=== PATIENT | female | born 1935 | race Caucasian/White ===

== ENCOUNTER 2016-04-28 13:48 | Emergency (ER) | payer OTHER, BC ==
[2016-04-28 13:56] VITALS: BP 152/91; PULSE 97; TEMP 97.8; BMI 37.8
--- NOTE | 2016-04-28 13:57 | PDOC ---
Rapid Medical Evaluation Time Seen by Provider: 04/28/16 13:50 Medical Evaluation: Allergies Allergy/AdvReac Type Severity Reaction Status Date / Time No Known Allergies Allergy Verified 11/16/15 08:29 04/28/16 13:51 I have performed a brief in-person evaluation of this patient The patient presents with a rash on lower belly and now has pain into the rectum Pertinent physical finding: VSS, rash lower abdomen appears well Burning in the rectal area The patient will proceed to the ED for further evaluation
--- NOTE | 2016-04-28 14:35 | PDOC ---
History of Present Illness - General Chief Complaint: Rash Stated Complaint: DISCOMFORT WHEN URINATING Time Seen by Provider: 04/28/16 13:50 History Source: Patient, Unavil. due to pt. cond. - History of Present Illness Initial Comments: CHIEF COMPLAINT: 80 y/o afebrile female with PMH HTN, hypothyroid, GERD c/o burning in her anus when she urinates. HISTORY OF PRESENT ILLNESS: She also admits to lower abdominal discomfort and frequent urination. She denies f/c, n/v/d, CP, SOB, back pain, hematuria. Vital signs on arrival are notable for pulse of 97. REVIEW OF SYSTEMS: GENERAL/CONSTITUTIONAL: No fever/chills. No weakness. No weight change. GASTROINTESTINAL: +lower abdominal discomfort. No nausea, vomiting, diarrhea GENITOURINARY: No dysuria, frequency, or change in urination. +burning in anal area with urination MUSCULOSKELETAL: No joint or muscle swelling or pain. No neck or back pain. SKIN: No rash or easy bruising. NEUROLOGIC: No headache, vertigo, loss of consciousness, or loss of sensation. PHYSICAL EXAM: GENERAL: The patient is awake, alert, and fully oriented, in no acute distress. HEAD: Normal with no signs of trauma. ABDOMEN: Soft, TTP of suprapubic region. No rebound, guarding or rigidity. RECTUM: No open sores or abrasions. Skin appears intact. No erythema EXTREMITIES: Normal range of motion, no edema. NEUROLOGICAL: Normal speech, normal gait. CN II-XII grossly intact. PSYCH: Normal mood, normal affect. SKIN: Warm, dry, normal turgor, no rashes or lesions noted. Past History - Past Medical History Allergies/Adverse Reactions: Allergies Allergy/AdvReac Type Severity Reaction Status Date / Time No Known Allergies Allergy Verified 04/28/16 13:52 Home Medications: Ambulatory Orders Benazepril HCl/Hctz [Lotensin Hct 20/25 (Nf)] 1 combo PO DAILY #0 tablet Losartan Potassium [Cozaar] 50 mg PO DAILY #0 tablet 06/10/11 Amlodipine Besylate [Norvasc -] 5 mg PO DAILY tablet 08/03/15 Hydrochlorothiazide [Hctz -] 25 mg PO DAILY tablet 08/03/15 Levothyroxine [Synthroid -] 100 mcg PO DAILY@0700 tablet 08/03/15 Lisinopril [Prinivil] 20 mg PO DAILY tablet 08/03/15 Pantoprazole Sodium [Protonix -] 20 mg PO DAILY tablet.ec 08/03/15 Hydrocortisone Valerate [Westcort 0.2% Cream -] 1 applic TP TID #1 tube Cephalexin Monohydrate [Keflex -] 500 mg PO BID #10 capsule 04/28/16 Anemia: Yes Asthma: No Cancer: No Cardiac Disorders: No CVA: No COPD: No CHF: No Dementia: No Diabetes: No GI Disorders: Yes (DIVERTICULITIS, gastritis) Disorders: No HTN: Yes Hypercholesterolemia: Yes Liver Disease: No Suicide Attempt (Hx): No Seizures: No Thyroid Disease: Yes - Surgical History Abdominal Surgery: Yes (HERNIA REPAIR, COLECTOMY) Appendectomy: No Cardiac Surgery: No Cholecystectomy: Yes Lung Surgery: No Neurologic Surgery: No Orthopedic Surgery: Yes (RIGHT SHOULDER A CHILD) - Immunization History Td Vaccination: Yes Immunization Up to Date: Yes - Psycho/Social/Smoking Cessation Hx Anxiety: No Suicidal Ideation: No Smoking Status: Yes Smoking History: Former smoker Have you smoked in the past 12 months: No Number of Cigarettes Smoked Daily: 0 If you are a former smoker, when did you quit?: 10 years ago Information on smoking cessation initiated: No Hx Alcohol Use: No Drug/Substance Use Hx: No Substance Use Type: None Hx Substance Use Treatment: No *Physical Exam - Vital Signs Last Vital Signs Temp Pulse Resp BP Pulse Ox 97.8 F 97 H 18 152/91 99 04/28/16 13:53 04/28/16 13:53 04/28/16 13:53 04/28/16 13:53 04/28/16 13:53 Medical Decision Making - Medical Decision Making A/P: 80 y/o female with burning in her anus with urination, increased urination and suprapubic tenderness. Plan is as follows: 1. UA/culture UA with 1+ leuks and 4 WBCs Given patient's age and complaints will treat with short course of keflex. Suggested she apply vaseline to anal area to help with burning. Suggested she f/u with her doctor within 1 week and return to the ER with any worsening or concerning symptoms. The patient verbalizes understanding of all instructions, has no further questions and is awaiting discharge. *DC/Admit/Observation/Transfer Diagnosis at time of Disposition: UTI (urinary tract infection) Qualifiers: Urinary tract infection type: acute cystitis Hematuria presence: without hematuria Qualified Code(s): N30.00 - Acute cystitis without hematuria - Discharge Dispostion Disposition: HOME Condition at time of disposition: Good - Prescriptions Prescriptions: Cephalexin Monohydrate [Keflex -] 500 mg PO BID #10 capsule - Referrals Referrals: Florin Ventura MD [Primary Care Provider] - Call tomorrow - Patient Instructions Printed Discharge Instructions: DI for Urinary Tract Infection (UTI) Additional Instructions: Discharge Instructions: -Take Keflex as prescribed -Apply vaseline around anal area to prevent burning -Drink plenty of water -Follow up with your doctor within 1 week -Return to the ER with any worsening or concerning symptoms
[2016-04-28 15:18] LABS: URINE APPEARANCE SLCLOUDY; URINE BILIRUBIN NEGATIVE (NEGATIVE); URINE BLOOD NEGATIVE (NEGATIVE); URINE COLOR LTYELLOW; URINE GLUCOSE (UA) NEGATIVE (NEGATIVE); URINE KETONE NEGATIVE (NEGATIVE); URINE NITRITE NEGATIVE (NEGATIVE); URINE PROTEIN NEGATIVE (NEGATIVE); URINE UROBILINOGEN NEGATIVE E.U./dl (0.2-1.0)
[2016-04-28 15:23] LABS: URINE LEUK ESTERASE 1+ (NEGATIVE)
[2016-04-28 15:58] LABS: URINE HYALINE CAST 1 /lpf; URINE MUCUS RARE; URINE RBC 1 /hpf (0-3); URINE WBC 4 /hpf (3-5)
== END 2016-04-28 16:25 | disposition home or self-care (01) ==
LOC: JERFT 13:48
DX: N30.00 Acute cystitis without hematuria (principal); I10 Essential (primary) hypertension; E03.9 Hypothyroidism, unspecified; K21.9 Gastro-esophageal reflux disease without esophagitis; D64.9 Anemia, unspecified
CPT/HCPCS: 81003; 81015; 99281-25

== ENCOUNTER 2021-08-10 15:24 | Inpatient (IN) | payer OTHER, BC ==
[2021-08-10] MEDS ORDERED: ACETAMINOPHEN 1000 MG/100 ML BAG IVPB ONE (17:14)
[2021-08-10] MEDS ORDERED: ACETAMINOPHEN INJECTION 100 ML IVPB ONE (17:27)
[2021-08-10 17:34] LABS: EOS % 2.5 % (0-4.5); HEMATOCRIT 32.5 % (32.4-45.2); HEMOGLOBIN 10.4 GM/dL (10.7-15.3); LYMPH % 11.1 % (8-40); MCH 28.4 pg (25.7-33.7); MCHC 32.1 g/dl (32.0-36.0); MEAN CELL VOLUME 88.5 fl (80-96); MEAN PLT VOLUME 8.9 fl (7.5-11.1); MONO % 6.5 % (3.8-10.2); NEUT % 78.9 % (42.8-82.8); PLATELET COUNT 462 10^3/uL (134-434); RBC 3.68 M/mm3 (3.60-5.2); RDW 31.3 % (11.6-15.6); RETICULOCYTES 1.53 % (0.5-1.5)
[2021-08-10 17:44] LABS: INR 1.09 (0.83-1.09); PROTHROMBIN TIME (PATIENT) 12.6 SEC (9.7-13.0)
[2021-08-10 17:46] LABS: ACTIVATED PTT 28.1 SECONDS (25.2-36.5)
[2021-08-10 17:54] LABS: BLOOD UREA NITROGEN 26.4 mg/dL (7-18); CALCIUM 9.3 mg/dL (8.5-10.1)
[2021-08-10 17:55] LABS: ALBUMIN 3.4 g/dl (3.4-5.0)
[2021-08-10 17:58] LABS: CREATININE 0.8 mg/dL (0.55-1.3)
[2021-08-10 17:59] LABS: BILIRUBIN,TOTAL 0.2 mg/dL (0.2-1); TOT PROT 6.4 g/dl (6.4-8.2)
[2021-08-10 18:21] LABS: EPI CELLS 27 /uL (0-25.1); HYALINE CASTS 1 /uL (0-3.1); PH,URINE 5.5 (5.0-8.0); URINE APPEARANCE CLEAR; URINE BACTERIA 2239 /uL (0-1359); URINE BILIRUBIN NEGATIVE (NEGATIVE); URINE COLOR YELLOW; URINE GLUCOSE (UA) NEGATIVE (NEGATIVE); URINE KETONE NEGATIVE (NEGATIVE); URINE LEUK ESTERASE 1+ (NEGATIVE); URINE NITRITE NEGATIVE (NEGATIVE); URINE PROTEIN NEGATIVE (NEGATIVE); URINE RBC 6 /uL (0-23.9); URINE UROBILINOGEN 0.2 mg/dL (0.2-1.0); URINE WBC 36 /uL (0-25.8)
[2021-08-10] MEDS ORDERED: PANTOPRAZOLE SODIUM 40 MG VIAL IVPUSH ONE (20:51)
[2021-08-10] MEDS ORDERED: PANTOPRAZOLE SODIUM 40 MG VIAL ONE (20:57)
[2021-08-10] MEDS ORDERED: MELATONIN 5 MG TABLETS PO PRN (22:56)
[2021-08-10] MEDS ORDERED: ACETAMINOPHEN 1000 MG/100 ML BAG IVPB PRN (22:56)
[2021-08-10] MEDS ORDERED: LACTATED RINGERS SOLUTION 1,000 ML/1,000 ML INFUS.BAG IV SCH (23:00)
[2021-08-11 06:53] LABS: BASO % 1.2 % (0-2.0); EOS % 6.1 % (0-4.5); HEMATOCRIT 29.5 % (32.4-45.2); HEMOGLOBIN 9.8 GM/dL (10.7-15.3); MCH 29.2 pg (25.7-33.7); MCHC 33.3 g/dl (32.0-36.0); MEAN CELL VOLUME 87.8 fl (80-96); MEAN PLT VOLUME 8.8 fl (7.5-11.1); MONO % 9.4 % (3.8-10.2); NEUT % 63.3 % (42.8-82.8); PLATELET COUNT 384 10^3/uL (134-434); RBC 3.36 M/mm3 (3.60-5.2); RDW 31.6 % (11.6-15.6); WHITE BLOOD COUNT 6.5 K/mm3 (4.0-10.0)
[2021-08-11 07:19] LABS: ALBUMIN 3.1 g/dl (3.4-5.0); CALCIUM 9.2 mg/dL (8.5-10.1)
[2021-08-11 07:20] LABS: BLOOD UREA NITROGEN 22.4 mg/dL (7-18); MAGNESIUM 2.4 mg/dL (1.8-2.4)
[2021-08-11 07:22] LABS: CREATININE 0.7 mg/dL (0.55-1.3); PHOSPHOROUS 3.4 mg/dL (2.5-4.9)
[2021-08-11 07:24] LABS: BILIRUBIN,TOTAL 0.4 mg/dL (0.2-1); TOT PROT 5.8 g/dl (6.4-8.2)
[2021-08-11] MEDS: LEVOTHYROXINE NA 112 MCG TABLET (FP) PO SCH (08:37)
[2021-08-11] MEDS ORDERED: PANTOPRAZOLE 40 MG TABLET PO ONE (09:27)
[2021-08-11] MEDS ORDERED: LOSARTAN POTASSIUM 50 MG TABLET ONE (09:27)
[2021-08-11] MEDS: LOSARTAN POTASSIUM 50 MG TABLET PO SCH (09:39)
[2021-08-11] MEDS ORDERED: PANTOPRAZOLE 40 MG TABLET PO SCH (10:00)
[2021-08-11 16:48] VITALS: BMI 32.7
[2021-08-11] MEDS ORDERED: PNEUMOC 20-VAL CONJ-DIP CRM/PF 0.5 ML SYRINGE IM ONE (17:15)
[2021-08-11] MEDS: PANTOPRAZOLE SODIUM 80 MG in SODIUM CHLORIDE 100 ML IVPB SCH (18:58)
[2021-08-11] MEDS: LACTATED RINGERS SOLUTION 1,000 ML/1,000 ML INFUS.BAG IV SCH (18:58)
[2021-08-11 20:19] LABS: BASO % 0.9 % (0-2.0); HEMOGLOBIN 9.3 GM/dL (10.7-15.3); LYMPH % 13.9 % (8-40); MCH 28.5 pg (25.7-33.7); MCHC 31.9 g/dl (32.0-36.0); MEAN CELL VOLUME 89.3 fl (80-96); MEAN PLT VOLUME 9.1 fl (7.5-11.1); MONO % 8.7 % (3.8-10.2); NEUT % 71.5 % (42.8-82.8); PLATELET COUNT 386 10^3/uL (134-434); RBC 3.25 M/mm3 (3.60-5.2); RDW 31.1 % (11.6-15.6)
[2021-08-12] MEDS: PANTOPRAZOLE SODIUM 80 MG in SODIUM CHLORIDE 100 ML IVPB SCH ×3 (05:56→15:43)
[2021-08-12] MEDS: LEVOTHYROXINE NA 112 MCG TABLET (FP) PO SCH (06:02)
[2021-08-12 08:34] LABS: BASO % 0.9 % (0-2.0); HEMATOCRIT 28.4 % (32.4-45.2); HEMOGLOBIN 9.4 GM/dL (10.7-15.3); LYMPH % 16.3 % (8-40); MCH 29.5 pg (25.7-33.7); MCHC 33.1 g/dl (32.0-36.0); MEAN PLT VOLUME 8.9 fl (7.5-11.1); MONO % 9.1 % (3.8-10.2); NEUT % 67.7 % (42.8-82.8); PLATELET COUNT 374 10^3/uL (134-434); RDW 31.2 % (11.6-15.6); WHITE BLOOD COUNT 6.5 K/mm3 (4.0-10.0)
[2021-08-12 08:45] LABS: INR 1.14 (0.83-1.09); PROTHROMBIN TIME (PATIENT) 13.1 SEC (9.7-13.0)
[2021-08-12 09:04] LABS: BLOOD UREA NITROGEN 14.5 mg/dL (7-18)
[2021-08-12 09:07] LABS: CREATININE 0.6 mg/dL (0.55-1.3)
[2021-08-12] MEDS ORDERED: PANTOPRAZOLE 40 MG TABLET PO SCH (10:00)
[2021-08-12] MEDS: LOSARTAN POTASSIUM 50 MG TABLET PO SCH (10:15)
[2021-08-12] MEDS: LACTATED RINGERS SOLUTION 1,000 ML/1,000 ML INFUS.BAG IV SCH (20:48)
[2021-08-13] MEDS: PANTOPRAZOLE SODIUM 80 MG in SODIUM CHLORIDE 100 ML IVPB SCH (00:26)
[2021-08-13] MEDS: LEVOTHYROXINE NA 112 MCG TABLET (FP) PO SCH (06:31)
[2021-08-13] MEDS ORDERED: ACETAMINOPHEN 325 MG TABLET (FP) PO PRN (08:15)
[2021-08-13] MEDS ORDERED: LACTATED RINGERS SOLUTION 1,000 ML/1,000 ML INFUS.BAG IV SCH (08:15)
[2021-08-13] MEDS: LOSARTAN POTASSIUM 50 MG TABLET PO SCH (11:01)
[2021-08-13 16:27] LABS: HEMATOCRIT 26.9 % (32.4-45.2); HEMOGLOBIN 8.7 GM/dL (10.7-15.3); MCH 29.4 pg (25.7-33.7); MCHC 32.1 g/dl (32.0-36.0); MEAN CELL VOLUME 91.6 fl (80-96); MEAN PLT VOLUME 9.4 fl (7.5-11.1); PLATELET COUNT 361 10^3/uL (134-434); RBC 2.94 M/mm3 (3.60-5.2); RDW 31.5 % (11.6-15.6); WHITE BLOOD COUNT 11.6 K/mm3 (4.0-10.0)
[2021-08-13 16:47] LABS: BLOOD UREA NITROGEN 16.8 mg/dL (7-18)
[2021-08-13 16:51] LABS: CREATININE 0.7 mg/dL (0.55-1.3)
[2021-08-13 21:46] LABS: BASO % 0.6 % (0-2.0); EOS % 5.3 % (0-4.5); HEMATOCRIT 24.5 % (32.4-45.2); HEMOGLOBIN 8.2 GM/dL (10.7-15.3); LYMPH % 14.8 % (8-40); MCH 30.2 pg (25.7-33.7); MCHC 33.3 g/dl (32.0-36.0); MEAN CELL VOLUME 90.6 fl (80-96); MEAN PLT VOLUME 8.8 fl (7.5-11.1); MONO % 10.2 % (3.8-10.2); NEUT % 69.1 % (42.8-82.8); PLATELET COUNT 328 10^3/uL (134-434); RBC 2.71 M/mm3 (3.60-5.2); RDW 31.3 % (11.6-15.6); WHITE BLOOD COUNT 8.8 K/mm3 (4.0-10.0)
[2021-08-13 21:53] LABS: INR 1.22 (0.83-1.09); PROTHROMBIN TIME (PATIENT) 14.1 SEC (9.7-13.0)
[2021-08-14] MEDS: LEVOTHYROXINE NA 112 MCG TABLET (FP) PO SCH (06:25)
[2021-08-14 09:27] LABS: HEMATOCRIT 25.1 % (32.4-45.2); HEMOGLOBIN 8.2 GM/dL (10.7-15.3); MCH 29.7 pg (25.7-33.7); MCHC 32.9 g/dl (32.0-36.0); MEAN CELL VOLUME 90.3 fl (80-96); MEAN PLT VOLUME 8.7 fl (7.5-11.1); PLATELET COUNT 346 10^3/uL (134-434); RBC 2.78 M/mm3 (3.60-5.2)
[2021-08-14 09:56] LABS: CALCIUM 8.7 mg/dL (8.5-10.1)
[2021-08-14 09:57] LABS: BLOOD UREA NITROGEN 12.3 mg/dL (7-18)
[2021-08-14 10:00] LABS: CREATININE 0.7 mg/dL (0.55-1.3)
[2021-08-14] MEDS: LOSARTAN POTASSIUM 50 MG TABLET PO SCH (10:38)
[2021-08-15] MEDS: LEVOTHYROXINE NA 112 MCG TABLET (FP) PO SCH (06:11)
[2021-08-15] MEDS ORDERED: PEG 3350/NA SULF BICARB CL/KCL 4000 ML SOLN.RECON PO ONE (08:00)
[2021-08-15 08:43] LABS: HEMATOCRIT 24.9 % (32.4-45.2); HEMOGLOBIN 8.3 GM/dL (10.7-15.3); MCH 30.5 pg (25.7-33.7); MCHC 33.4 g/dl (32.0-36.0); MEAN CELL VOLUME 91.1 fl (80-96); MEAN PLT VOLUME 8.8 fl (7.5-11.1); PLATELET COUNT 364 10^3/uL (134-434); RBC 2.73 M/mm3 (3.60-5.2); RDW 31.6 % (11.6-15.6)
[2021-08-15 08:59] LABS: BLOOD UREA NITROGEN 10.5 mg/dL (7-18); CALCIUM 8.8 mg/dL (8.5-10.1)
[2021-08-15 09:02] LABS: CREATININE 0.7 mg/dL (0.55-1.3)
[2021-08-15] MEDS: LOSARTAN POTASSIUM 50 MG TABLET PO SCH (09:42)
[2021-08-15] MEDS ORDERED: BISACODYL 5 MG TABLET.DR (FP) PO ONE (11:00)
[2021-08-15] MEDS ORDERED: POLYETHYLENE GLYCOL 3350 255 GM BTL PO ONE (11:15)
[2021-08-16] MEDS ORDERED: SODIUM PHOSPHATE/NA BIPHOS 133 ML ENEMA RC ONE (04:00)
[2021-08-16] MEDS: LEVOTHYROXINE NA 112 MCG TABLET (FP) PO SCH (06:03)
[2021-08-16 07:10] LABS: HEMATOCRIT 21.6 % (32.4-45.2); HEMOGLOBIN 7.2 GM/dL (10.7-15.3); MCH 30.2 pg (25.7-33.7); MCHC 33.1 g/dl (32.0-36.0); MEAN CELL VOLUME 91.3 fl (80-96); MEAN PLT VOLUME 8.8 fl (7.5-11.1); PLATELET COUNT 336 10^3/uL (134-434); RBC 2.37 M/mm3 (3.60-5.2); RDW 30.8 % (11.6-15.6); WHITE BLOOD COUNT 8.2 K/mm3 (4.0-10.0)
[2021-08-16 07:35] LABS: CALCIUM 8.9 mg/dL (8.5-10.1)
[2021-08-16 07:36] LABS: BLOOD UREA NITROGEN 8.4 mg/dL (7-18)
[2021-08-16 07:39] LABS: CREATININE 0.7 mg/dL (0.55-1.3)
[2021-08-16] MEDS: PANTOPRAZOLE 40 MG TABLET PO SCH (09:10)
[2021-08-16] MEDS: LOSARTAN POTASSIUM 50 MG TABLET PO SCH (09:10)
[2021-08-17] MEDS: LEVOTHYROXINE NA 112 MCG TABLET (FP) PO SCH (06:24)
[2021-08-17 09:20] LABS: HEMATOCRIT 28.2 % (32.4-45.2); HEMOGLOBIN 9.6 GM/dL (10.7-15.3); MCH 30.7 pg (25.7-33.7); MCHC 33.9 g/dl (32.0-36.0); MEAN CELL VOLUME 90.5 fl (80-96); MEAN PLT VOLUME 9.1 fl (7.5-11.1); PLATELET COUNT 377 10^3/uL (134-434); RBC 3.11 M/mm3 (3.60-5.2); RDW 28.4 % (11.6-15.6); WHITE BLOOD COUNT 9.1 K/mm3 (4.0-10.0)
[2021-08-17 10:13] LABS: ALBUMIN 2.9 g/dl (3.4-5.0); BLOOD UREA NITROGEN 9.5 mg/dL (7-18); CALCIUM 8.7 mg/dL (8.5-10.1)
[2021-08-17 10:16] LABS: CREATININE 0.6 mg/dL (0.55-1.3)
[2021-08-17 10:18] LABS: BILIRUBIN,TOTAL 0.5 mg/dL (0.2-1); TOT PROT 5.5 g/dl (6.4-8.2)
[2021-08-17] MEDS: PANTOPRAZOLE 40 MG TABLET PO SCH (10:29)
[2021-08-17] MEDS: LOSARTAN POTASSIUM 50 MG TABLET PO SCH (10:29)
[2021-08-17 13:55] VITALS: BP 147/64; PULSE 64; TEMP 98.2
== END 2021-08-17 16:30 | disposition home or self-care (01) | DRG 378 ==
LOC: JER 15:24 → JERBED 20:39 → J7W 08-11 15:57
PROVIDERS: ADMIT Hospitalist; ATTEND Internal Medicine
PROC: 0DB58ZX Excision of Esophagus, Via Natural or Artificial Opening Endoscopic, Diagnostic (ICD-10-PCS; principal; 2021-08-13 09:00)
PROC: 0DBH8ZX Excision of Cecum, Via Natural or Artificial Opening Endoscopic, Diagnostic (ICD-10-PCS; 2021-08-16)
PROC: 30233N1 Transfusion of Nonautologous Red Blood Cells into Peripheral Vein, Percutaneous Approach (ICD-10-PCS; 2021-08-16)
DX: K92.2 Gastrointestinal hemorrhage, unspecified (principal); D62 Acute posthemorrhagic anemia; I10 Essential (primary) hypertension; K21.9 Gastro-esophageal reflux disease without esophagitis; E03.9 Hypothyroidism, unspecified; K64.8 Other hemorrhoids; R50.9 Fever, unspecified; G47.09 Other insomnia; K57.90 Diverticulosis of intestine, part unspecified, without perforation or abscess without bleeding; K76.89 Other specified diseases of liver; D50.9 Iron deficiency anemia, unspecified; R01.1 Cardiac murmur, unspecified; D75.838 Other thrombocytosis; K44.9 Diaphragmatic hernia without obstruction or gangrene; E66.9 Obesity, unspecified; Z68.32 Body mass index [BMI] 32.0-32.9, adult; I34.0 Nonrheumatic mitral (valve) insufficiency; D13.0 Benign neoplasm of esophagus
CPT/HCPCS: 0241U-QW; 36415; 36430; 71045-TC-FY; 74174-TC; 80048; 80053; 81003; 82272; 82728; 83540; 83550; 83605; 83735; 84100; 84484; 85025; 85027; 85045; 85610; 85730; 86850; 86900; 86901; 86922; 87081; 87086; 87186; 88305-TC; 90677; 93005; 93010; 93306-TC; 94760; 99285-25; P9058; Q9967

== ENCOUNTER 2023-03-10 06:18 | Inpatient (IN) | payer OTHER, BC ==
[2023-03-10] MEDS ORDERED: SODIUM CHLORIDE 0.9% 500 ML INFUS.BAG IV ONE (06:34)
[2023-03-10] MEDS ORDERED: ONDANSETRON 4 MG/2 ML VIAL IVPUSH ONE (06:34)
[2023-03-10] MEDS ORDERED: FAMOTIDINE 20 MG/50 ML IVPB 20 MG/50 ML MG IVPB ONE ×2 (06:34→07:19)
[2023-03-10] MEDS ORDERED: ACETAMINOPHEN 1000 MG/100 ML BAG IVPB ONE (06:42)
[2023-03-10] MEDS ORDERED: ACETAMINOPHEN INJECTION 100 ML IVPB ONE (07:19)
[2023-03-10] MEDS ORDERED: ONDANSETRON 4 MG/2 ML VIAL ONE (07:19)
[2023-03-10 07:20] LABS: BASO % 0.5 % (0-2.0); EOS % 0.2 % (0-4.5); HEMATOCRIT 33.1 % (32.4-45.2); HEMOGLOBIN 10.2 GM/dL (10.7-15.3); LYMPH % 5.9 % (8-40); MCH 25.3 pg (25.7-33.7); MCHC 30.8 g/dl (32.0-36.0); MEAN CELL VOLUME 82.2 fl (80-96); MEAN PLT VOLUME 9.2 fl (7.5-11.1); MONO % 3.1 % (3.8-10.2); NEUT % 90.3 % (42.8-82.8); PLATELET COUNT 487 10^3/uL (134-434); RBC 4.02 M/mm3 (3.60-5.2); WHITE BLOOD COUNT 12.5 K/mm3 (4.0-10.0)
[2023-03-10 07:45] LABS: POTASSIUM 4.3 mmol/L (3.5-5.1)
[2023-03-10 07:47] LABS: CALCIUM 9.5 mg/dL (8.5-10.1)
[2023-03-10 07:48] LABS: ALBUMIN 3.5 g/dl (3.4-5.0); MAGNESIUM 2.1 mg/dL (1.8-2.4)
[2023-03-10 07:50] LABS: CREATININE 0.9 mg/dL (0.55-1.3)
[2023-03-10 07:52] LABS: BILIRUBIN,TOTAL 0.3 mg/dL (0.2-1); TOT PROT 7.2 g/dl (6.4-8.2)
[2023-03-10] MEDS ORDERED: BISACODYL 10 MG SUPP.RECT PR PRN (14:13)
[2023-03-10] MEDS ORDERED: PANTOPRAZOLE SODIUM 40 MG VIAL IVPUSH SCH (14:15)
[2023-03-10] MEDS ORDERED: PIPERACILLIN/TAZOB 3.375 GM 3.375 GM/50 ML BAG IVPB ONE (15:09)
[2023-03-10] MEDS ORDERED: SODIUM CHLORIDE 1,000 ML IV SCH (15:15)
[2023-03-10] MEDS: PIPERACILLIN/TAZOB 3.375 GM 3.375 GM in DEXTROSE 5%-WATER - 50 ML IVPB SCH ×2 (16:56→21:32)
[2023-03-10 18:39] LABS: EPI CELLS 32 /uL (0-25.1); HYALINE CASTS 2 /uL (0-3.1); PH,URINE 5.5 (5.0-8.0); URINE APPEARANCE CLEAR; URINE BACTERIA 1527 /uL (0-1359); URINE BILIRUBIN NEGATIVE (NEGATIVE); URINE COLOR YELLOW; URINE GLUCOSE (UA) NEGATIVE (NEGATIVE); URINE KETONE NEGATIVE (NEGATIVE); URINE LEUK ESTERASE NEGATIVE (NEGATIVE); URINE NITRITE POSITIVE (NEGATIVE); URINE PROTEIN 1+ (NEGATIVE); URINE RBC 11 /uL (0-23.9); URINE WBC 13 /uL (0-25.8)
[2023-03-10 21:10] VITALS: BMI 32.8
[2023-03-10] MEDS: POLYETHYLENE GLYCOL (HEALTHYLAX) 3350 17 GM PACKET PO SCH (21:32)
[2023-03-10] MEDS: PANTOPRAZOLE SODIUM 40 MG VIAL IVPUSH SCH (21:33)
[2023-03-11] MEDS: PIPERACILLIN/TAZOB 3.375 GM 3.375 GM in DEXTROSE 5%-WATER - 50 ML IVPB SCH (01:21)
[2023-03-11] MEDS: HYDROXYUREA 500 MG CAPSULE PO SCH (09:06)
[2023-03-11] MEDS: LOSARTAN POTASSIUM 50 MG TABLET PO SCH (09:06)
[2023-03-11] MEDS: POLYETHYLENE GLYCOL (HEALTHYLAX) 3350 17 GM PACKET PO SCH ×2 (09:07→21:39)
[2023-03-11] MEDS: PANTOPRAZOLE SODIUM 40 MG VIAL IVPUSH SCH ×2 (09:15→21:35)
[2023-03-11] MEDS: LEVOTHYROXINE SODIUM 100 MCG 5 ML VIAL IVPUSH SCH (09:15)
[2023-03-11 09:54] LABS: PH,URINE 5.5 (5.0-8.0); URINE APPEARANCE CLEAR; URINE BILIRUBIN NEGATIVE (NEGATIVE); URINE COLOR YELLOW; URINE GLUCOSE (UA) NEGATIVE (NEGATIVE); URINE KETONE NEGATIVE (NEGATIVE); URINE LEUK ESTERASE NEGATIVE (NEGATIVE); URINE NITRITE NEGATIVE (NEGATIVE); URINE PROTEIN TRACE (NEGATIVE)
[2023-03-11 10:01] LABS: INR 1.12 (0.83-1.09)
[2023-03-11 10:10] LABS: BASO % 0.8 % (0-2.0); EOS % 4.5 % (0-4.5); HEMATOCRIT 28.1 % (32.4-45.2); HEMOGLOBIN 8.6 GM/dL (10.7-15.3); LYMPH % 14.9 % (8-40); MCH 25.1 pg (25.7-33.7); MCHC 30.4 g/dl (32.0-36.0); MEAN CELL VOLUME 82.6 fl (80-96); MEAN PLT VOLUME 9.3 fl (7.5-11.1); NEUT % 69.8 % (42.8-82.8); PLATELET COUNT 369 10^3/uL (134-434); RBC 3.41 M/mm3 (3.60-5.2); RDW 19.5 % (11.6-15.6); RETICULOCYTES 1.11 % (0.5-1.5); WHITE BLOOD COUNT 6.8 K/mm3 (4.0-10.0)
[2023-03-11 10:18] LABS: POTASSIUM 3.9 mmol/L (3.5-5.1)
[2023-03-11 10:20] LABS: BLOOD UREA NITROGEN 14.6 mg/dL (7-18); CALCIUM 8.4 mg/dL (8.5-10.1); MAGNESIUM 2.2 mg/dL (1.8-2.4)
[2023-03-11 10:23] LABS: CREATININE 0.8 mg/dL (0.55-1.3); PHOSPHOROUS 2.9 mg/dL (2.5-4.9)
[2023-03-11 10:25] LABS: BILIRUBIN,TOTAL 0.4 mg/dL (0.2-1); TOT PROT 5.6 g/dl (6.4-8.2)
[2023-03-11 10:28] LABS: ALBUMIN 2.7 g/dl (3.4-5.0)
[2023-03-12 07:48] LABS: BASO % 1.1 % (0-2.0); EOS % 6.2 % (0-4.5); HEMATOCRIT 27.7 % (32.4-45.2); HEMOGLOBIN 8.8 GM/dL (10.7-15.3); LYMPH % 16.6 % (8-40); MCH 26.2 pg (25.7-33.7); MCHC 31.6 g/dl (32.0-36.0); MEAN PLT VOLUME 9.6 fl (7.5-11.1); MONO % 10.1 % (3.8-10.2); PLATELET COUNT 321 10^3/uL (134-434); RBC 3.34 M/mm3 (3.60-5.2); RDW 19.3 % (11.6-15.6); WHITE BLOOD COUNT 6.6 K/mm3 (4.0-10.0)
[2023-03-12 08:07] LABS: POTASSIUM 3.8 mmol/L (3.5-5.1)
[2023-03-12 08:08] LABS: CALCIUM 8.7 mg/dL (8.5-10.1)
[2023-03-12 08:13] LABS: CREATININE 0.6 mg/dL (0.55-1.3)
[2023-03-12] MEDS: LEVOTHYROXINE SODIUM 100 MCG 5 ML VIAL IVPUSH SCH (10:10)
[2023-03-12] MEDS: HYDROXYUREA 500 MG CAPSULE PO SCH (10:10)
[2023-03-12] MEDS: LOSARTAN POTASSIUM 50 MG TABLET PO SCH (10:10)
[2023-03-12] MEDS: PANTOPRAZOLE SODIUM 40 MG VIAL IVPUSH SCH ×2 (10:11→21:52)
[2023-03-12] MEDS: POLYETHYLENE GLYCOL (HEALTHYLAX) 3350 17 GM PACKET PO SCH ×2 (10:13→21:52)
[2023-03-12] MEDS: PIPERACILLIN/TAZOB 3.375 GM 3.375 GM in DEXTROSE 5%-WATER - 50 ML IVPB SCH ×3 (13:21→16:38)
[2023-03-12] MEDS ORDERED: IRON SUCROSE INJECTION 200 MG in SODIUM CHLORIDE 90 ML IVPB ONE (14:00)
[2023-03-13 09:34] LABS: HEMATOCRIT 32.1 % (32.4-45.2); HEMOGLOBIN 9.8 GM/dL (10.7-15.3); MCH 25.3 pg (25.7-33.7); MCHC 30.7 g/dl (32.0-36.0); MEAN CELL VOLUME 82.5 fl (80-96); MEAN PLT VOLUME 9.4 fl (7.5-11.1); PLATELET COUNT 332 10^3/uL (134-434); RBC 3.89 M/mm3 (3.60-5.2); RDW 19.3 % (11.6-15.6)
[2023-03-13 09:57] LABS: POTASSIUM 3.7 mmol/L (3.5-5.1)
[2023-03-13] MEDS: LEVOTHYROXINE SODIUM 100 MCG 5 ML VIAL IVPUSH SCH (10:13)
[2023-03-13] MEDS: POLYETHYLENE GLYCOL (HEALTHYLAX) 3350 17 GM PACKET PO SCH ×2 (10:13→21:27)
[2023-03-13 10:14] LABS: BLOOD UREA NITROGEN 9.4 mg/dL (7-18); CALCIUM 9.1 mg/dL (8.5-10.1)
[2023-03-13] MEDS: LOSARTAN POTASSIUM 50 MG TABLET PO SCH (10:14)
[2023-03-13] MEDS: HYDROXYUREA 500 MG CAPSULE PO SCH (10:14)
[2023-03-13] MEDS: PANTOPRAZOLE SODIUM 40 MG VIAL IVPUSH SCH ×2 (10:15→21:27)
[2023-03-13 10:18] LABS: CREATININE 0.7 mg/dL (0.55-1.3)
[2023-03-13] MEDS ORDERED: IRON SUCROSE INJECTION 200 MG in SODIUM CHLORIDE 90 ML IVPB ONE (11:00)
[2023-03-14 09:30] LABS: BASO % 1.1 % (0-2.0); EOS % 7.3 % (0-4.5); HEMATOCRIT 30.1 % (32.4-45.2); HEMOGLOBIN 9.4 GM/dL (10.7-15.3); MCH 26.2 pg (25.7-33.7); MCHC 31.3 g/dl (32.0-36.0); MEAN CELL VOLUME 83.6 fl (80-96); MEAN PLT VOLUME 9.1 fl (7.5-11.1); NEUT % 66.6 % (42.8-82.8); PLATELET COUNT 261 10^3/uL (134-434); RDW 19.9 % (11.6-15.6); RETICULOCYTES 1.87 % (0.5-1.5); WHITE BLOOD COUNT 5.9 K/mm3 (4.0-10.0)
[2023-03-14] MEDS: PANTOPRAZOLE SODIUM 40 MG VIAL IVPUSH SCH (09:39)
[2023-03-14] MEDS: LEVOTHYROXINE SODIUM 100 MCG 5 ML VIAL IVPUSH SCH (09:39)
[2023-03-14] MEDS: HYDROXYUREA 500 MG CAPSULE PO SCH ×2 (09:39→09:54)
[2023-03-14] MEDS: POLYETHYLENE GLYCOL (HEALTHYLAX) 3350 17 GM PACKET PO SCH ×2 (09:39→21:43)
[2023-03-14] MEDS: LOSARTAN POTASSIUM 50 MG TABLET PO SCH (09:39)
[2023-03-14 09:51] LABS: POTASSIUM 3.3 mmol/L (3.5-5.1)
[2023-03-14 10:00] LABS: BLOOD UREA NITROGEN 9.4 mg/dL (7-18); CREATININE 0.6 mg/dL (0.55-1.3)
[2023-03-14] MEDS ORDERED: KCL 20 MEQ PREMIX BAG 20 MEQ/100 ML INFUS.BAG IVPB SCH (10:30)
[2023-03-14] MEDS: KCL 10 MEQ IVPB 10 MEQ/100 ML INFUS.BAG IVPB SCH ×2 (11:00→11:38)
[2023-03-14] MEDS: POTASSIUM CHLORIDE ORAL LIQUID 20 MEQ/15 ML PO SCH ×2 (11:48→21:43)
[2023-03-14] MEDS ORDERED: ONDANSETRON 4 MG/2 ML VIAL IVPUSH ONE (12:22)
[2023-03-14 14:44] VITALS: RESP 18
[2023-03-14] MEDS ORDERED: LOSARTAN POTASSIUM 50 MG TABLET PO SCH (16:54)
[2023-03-14] MEDS ORDERED: IRON SUCROSE INJECTION 100 MG in SODIUM CHLORIDE 95 ML IVPB ONE (18:00)
[2023-03-14] MEDS: HEPARIN NA (PORCINE) 5,000 UNITS/ML 1ML VIAL SQ SCH (21:43)
[2023-03-15] MEDS: HEPARIN NA (PORCINE) 5,000 UNITS/ML 1ML VIAL SQ SCH (05:15)
[2023-03-15 07:04] VITALS: PULSE 60
[2023-03-15 08:38] LABS: BASO % 0.7 % (0-2.0); HEMATOCRIT 28.3 % (32.4-45.2); HEMOGLOBIN 8.9 GM/dL (10.7-15.3); LYMPH % 14.3 % (8-40); MCH 26.1 pg (25.7-33.7); MCHC 31.3 g/dl (32.0-36.0); MEAN CELL VOLUME 83.3 fl (80-96); MEAN PLT VOLUME 9.5 fl (7.5-11.1); MONO % 10.2 % (3.8-10.2); NEUT % 66.8 % (42.8-82.8); PLATELET COUNT 239 10^3/uL (134-434); RDW 19.8 % (11.6-15.6); WHITE BLOOD COUNT 6.9 K/mm3 (4.0-10.0)
[2023-03-15 08:53] LABS: POTASSIUM 3.8 mmol/L (3.5-5.1)
[2023-03-15 08:58] LABS: ALBUMIN 2.7 g/dl (3.4-5.0); BLOOD UREA NITROGEN 10.4 mg/dL (7-18); CALCIUM 8.5 mg/dL (8.5-10.1); MAGNESIUM 1.8 mg/dL (1.8-2.4)
[2023-03-15 09:03] LABS: TOT PROT 5.5 g/dl (6.4-8.2)
[2023-03-15 09:05] LABS: BILIRUBIN,TOTAL 0.9 mg/dL (0.2-1); CREATININE 0.7 mg/dL (0.55-1.3)
[2023-03-15] MEDS: POLYETHYLENE GLYCOL (HEALTHYLAX) 3350 17 GM PACKET PO SCH (09:07)
[2023-03-15] MEDS: HYDROXYUREA 500 MG CAPSULE PO SCH (09:07)
[2023-03-15] MEDS: POTASSIUM CHLORIDE ORAL LIQUID 20 MEQ/15 ML PO SCH (09:07)
[2023-03-15] MEDS: LEVOTHYROXINE SODIUM 100 MCG 5 ML VIAL IVPUSH SCH (09:07)
[2023-03-15] MEDS ORDERED: PANTOPRAZOLE 40 MG TABLET PO SCH (10:00)
[2023-03-15] MEDS ORDERED: IRON SUCROSE INJECTION 100 MG in SODIUM CHLORIDE 95 ML IVPB ONE (10:15)
[2023-03-15 14:44] VITALS: BP 157/74; TEMP 98.2
== END 2023-03-15 14:14 | disposition home health service (06) | DRG 394 ==
LOC: JER 06:18 → JERBED 13:04 → J7W 20:20
PROVIDERS: ADMIT Internal Medicine; ATTEND Nurse Practitioner Acute Care
PROC: 0DB68ZX Excision of Stomach, Via Natural or Artificial Opening Endoscopic, Diagnostic (ICD-10-PCS; 2023-03-14)
PROC: 0DB98ZX Excision of Duodenum, Via Natural or Artificial Opening Endoscopic, Diagnostic (ICD-10-PCS; principal; 2023-03-14 13:00)
DX: K43.6 Other and unspecified ventral hernia with obstruction, without gangrene (principal); K92.0 Hematemesis; K52.9 Noninfective gastroenteritis and colitis, unspecified; I10 Essential (primary) hypertension; E03.9 Hypothyroidism, unspecified; D50.9 Iron deficiency anemia, unspecified; K21.9 Gastro-esophageal reflux disease without esophagitis; D47.3 Essential (hemorrhagic) thrombocythemia; K43.9 Ventral hernia without obstruction or gangrene; K29.00 Acute gastritis without bleeding
CPT/HCPCS: 0241U-QW; 36415; 71045-TC-FY; 74021-TC-FY; 74177-TC; 80048; 80053; 81003; 82550; 82728; 83036; 83540; 83550; 83605; 83690; 83735; 84100; 84484; 85025; 85027; 85045; 85610; 86140; 87086; 93005; 93010; 97116-GP; 99285-25; J1644; J1756; J8999; Q9967

== ENCOUNTER 2023-12-14 08:44 | Day surgery (SDC) | payer OTHER, BC ==
[2023-12-14 09:39] VITALS: RESP 20; TEMP 98
[2023-12-14] MEDS ORDERED: FERRIC CARBOXYMALTOSE 750 MG in SODIUM CHLORIDE 250 ML IVPB ONE (10:00)
[2023-12-14] MEDS: IRON SUCROSE INJECTION 200 MG in SODIUM CHLORIDE 100 ML IVPB ONE (10:24)
[2023-12-14 11:56] VITALS: BP 103/86; PULSE 75
== END 2023-12-14 11:40 | disposition home or self-care (01) ==
LOC: JONCCHEMO 08:44 → J7W 08:45 → JONCCHEMO 11:40
PROVIDERS: ATTEND Internal Medicine Hematology & Oncology
PROC: 3E033GC Introduction of Other Therapeutic Substance into Peripheral Vein, Percutaneous Approach (ICD-10-PCS; principal; 2023-12-14)
DX: D47.3 Essential (hemorrhagic) thrombocythemia (principal)
CPT/HCPCS: 96365; J1756

== ENCOUNTER 2023-12-22 08:01 | Day surgery (SDC) | payer OTHER, BC ==
[2023-12-22] MEDS: IRON SUCROSE INJECTION 200 MG in SODIUM CHLORIDE 100 ML IVPB ONE ×2 (08:58→10:06)
[2023-12-22 09:03] VITALS: RESP 20; TEMP 97.4
[2023-12-22 09:45] VITALS: BP 160/58; PULSE 57
== END 2023-12-22 09:45 | disposition home or self-care (01) ==
LOC: JONCCHEMO 08:01 → J7W 08:02 → JONCCHEMO 09:45
PROVIDERS: ATTEND Internal Medicine Hematology & Oncology
PROC: 3E033GC Introduction of Other Therapeutic Substance into Peripheral Vein, Percutaneous Approach (ICD-10-PCS; principal; 2023-12-22)
DX: D50.9 Iron deficiency anemia, unspecified (principal)
CPT/HCPCS: 96365; J1756

== ENCOUNTER 2023-12-28 07:51 | Day surgery (SDC) | payer OTHER, BC ==
[2023-12-28] MEDS: IRON SUCROSE INJECTION 200 MG in SODIUM CHLORIDE 100 ML IVPB ONE (08:31)
[2023-12-28 16:42] VITALS: RESP 20; TEMP 97.9
[2023-12-28 16:44] VITALS: BP 172/55; PULSE 58
== END 2023-12-28 09:30 | disposition home or self-care (01) ==
LOC: J7W 07:51 → JONCCHEMO 07:51
PROVIDERS: ATTEND Internal Medicine Hematology & Oncology
PROC: 3E033GC Introduction of Other Therapeutic Substance into Peripheral Vein, Percutaneous Approach (ICD-10-PCS; principal; 2023-12-28)
DX: D50.9 Iron deficiency anemia, unspecified (principal)
CPT/HCPCS: 96365; J1756

== ENCOUNTER 2024-01-05 08:06 | Day surgery (SDC) | payer OTHER, BC ==
[2024-01-05] MEDS: IRON SUCROSE COMPLEX 200 MG in SODIUM CHLORIDE 100 ML IVPB ONE (08:39)
[2024-01-05 09:39] VITALS: RESP 20; TEMP 97.4
[2024-01-05 11:14] VITALS: BP 188/79; PULSE 60
== END 2024-01-05 10:25 | disposition home or self-care (01) ==
LOC: JONCCHEMO 08:06 → J7W 08:07 → JONCCHEMO 10:25
PROVIDERS: ATTEND Internal Medicine Hematology & Oncology
PROC: 3E033GC Introduction of Other Therapeutic Substance into Peripheral Vein, Percutaneous Approach (ICD-10-PCS; principal; 2024-01-05)
DX: D50.9 Iron deficiency anemia, unspecified (principal)
CPT/HCPCS: 96365